=== PATIENT | female | born 1995 | race Caucasian/White ===

== ENCOUNTER 2017-09-04 23:56 | Emergency (ER) | payer BC ==
[2017-09-05 00:34] LABS: CHLORIDE,CL 104 mmol/L (98-107); SODIUM,NA 138 mmol/L (136-145)
[2017-09-05] MEDS ORDERED: Ondansetron 4 MG/2 ML SDV IVPUSH ONE ×2 (00:36→07:45)
[2017-09-05] MEDS ORDERED: Ketorolac 30 MG/ML SDV IVPUSH ONE (00:36)
--- NOTE | 2017-09-05 00:36 | EDM.PDOC ---
ED HPI GENERAL MEDICAL PROBLEM - General Chief Complaint: General Stated Complaint: abd pain, emesis, headache Time Seen by Provider: 09/05/17 00:24 Source of Information: Reports: Patient History Limitations: Reports: No Limitations - History of Present Illness INITIAL COMMENTS - FREE TEXT/NARRATIVE: Patient complains of not feeling well today. Initially she had headache that improved after taking ibuprofen. 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 After she was off work and returned home, she developed nausea, emesis, abdominal pain/cramping. She also noted worsening headache again. Patient has had chills/felt sweaty. No diarrhea or urinary changes. No neuro complaints. Does have remote history of migraines but has not had one for "years". Previous migraine headaches did not present like this however. Patient now has dry heaves. Unable to keep anything down. No other complaints. 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 Denies: Fever HEENT: Reports: No Symptoms Respiratory: Reports: No Symptoms Cardiovascular: Reports: No Symptoms GI/Abdominal: Reports: Abdominal Pain, Nausea, Vomiting. Denies: Constipation, Diarrhea, Distension, Hematemesis, Hematochezia : Reports: No Symptoms Musculoskeletal: Reports: No Symptoms Skin: Reports: No Symptoms Neurological: Reports: Headache. Denies: Confusion, Dizziness, Numbness, Paresthesia, Syncope, Difficulty Walking, Change in Speech, Gait Disturbance Psychiatric: Reports: No Symptoms ED EXAM, GENERAL - Physical Exam Exam: See Below Exam Limited By: No Limitations General Appearance: Alert, WD/WN, Other (appears tired, uncomfortable) Eye Exam: Left Eye: EOMI, PERRL Ears: Normal External Exam Nose: No: Nasal Deformity, Nasal Swelling, Nasal Drainage Throat/Mouth: Normal Inspection, Normal Lips, Normal Teeth, Normal Gums, Normal Oropharynx, Normal Voice, No Airway Compromise Head: Atraumatic, Normocephalic Neck: Supple, Non-Tender, Full Range of Motion, Other (small palpable nodes noted left side of neck, chronic per patient) Respiratory/Chest: No Respiratory Distress, Lungs Clear, Normal Breath Sounds, No Accessory Muscle Use Cardiovascular: Normal Peripheral Pulses, No Edema, No Murmur, Tachycardia Peripheral Pulses: 2+: Radial (L), Radial (R) GI/Abdominal: Soft, Tender (diffusely, all 4 quadrants. More pronounced in epigastric area. ), Abnormal Bowel Sounds (diminished all 4 quadrants). No: Guarding, Rigid, Rebound, Hepatomegaly (Female) Exam: Deferred Rectal (Female) Exam: Deferred Back Exam: Normal Inspection. No: CVA Tenderness (L), CVA Tenderness (R) Extremities: Normal Inspection, Normal Range of Motion, Non-Tender, No Pedal Edema, Normal Capillary Refill Neurological: Alert, Oriented, CN II-XII Intact, Normal Cognition, Normal Gait, No Motor/Sensory Deficits Psychiatric: Normal Affect, Normal Mood Skin Exam: Warm, Dry, Intact, Normal Color, Other (slightly warm to touch) Course - Vital Signs Last Recorded V/S: Last Vital Signs Temp 37.0 C 09/05/17 08:45 Pulse 80 09/05/17 08:45 Resp 16 09/05/17 08:45 BP 124/74 09/05/17 08:45 Pulse Ox 100 09/05/17 08:45 - Orders/Labs/Meds Orders: Active Orders 24 hr Category Date Time Status Abdomen w Cont [CT] Stat Exams 09/05/17 07:54 Taken UA W/MICROSCOPIC [URIN] Stat Lab 09/05/17 00:09 Ordered Lactated Ringers [Ringers, Lactated] 1,000 ml Med 09/05/17 04:45 Active IV ASDIRECTED Lactated Ringers [Ringers, Lactated] 1,000 ml Med 09/05/17 05:00 Active IV ASDIRECTED Sodium Chloride 0.9% [Saline Flush] Med 09/05/17 00:24 Active 10 ml FLUSH ASDIRECTED PRN Saline Lock Insert [OM.PC] Stat Oth 09/05/17 00:24 Ordered Medication Orders Lactated Ringer's (Ringers, Lactated) 1,000 mls @ 500 mls/hr IV ASDIRECTED MADDISON Last Admin: 09/05/17 04:52 Dose: 500 mls/hr Lactated Ringer's (Ringers, Lactated) 1,000 mls @ 250 mls/hr IV ASDIRECTED MADDISON Last Admin: 09/05/17 06:54 Dose: 250 mls/hr Sodium Chloride (Saline Flush) 10 ml FLUSH ASDIRECTED PRN PRN Reason: Keep Vein Open Last Admin: 09/05/17 07:51 Dose: 10 ml Admin: 09/05/17 00:49 Dose: 10 ml Labs: Laboratory Tests 09/05/17 09/05/17 09/05/17 Range/Units 00:09 00:10 00:10 WBC 10.9 H (4.0-10.2) K/uL RBC 4.54 (3.77-5.09) M/uL Hgb 14.0 (11.7-15.5) g/dL Hct 40.4 (34.0-46.0) % MCV 89.0 (84.0-98.0) fL MCH 30.8 (28.2-33.3) pg MCHC 34.7 (31.7-36.0) g/dL RDW 12.3 (11.2-14.1) % Plt Count 219 (150-350) K/uL Neut % (Auto) 88.2 H (45.0-80.0) % Lymph % (Auto) 5.6 L (10.0-50.0) % [place] % (Auto) 5.8 (2.0-14.0) % Eos % (Auto) 0.3 (0.0-5.0) % Baso % (Auto) 0.1 (0.0-2.0) % Neut # (Auto) 9.57 H (1.40-7.00) K/uL Lymph # (Auto) 0.61 (0.50-3.50) K/uL [place] # (Auto) 0.63 (0.00-1.00) K/uL Eos # (Auto) 0.03 (0.00-0.50) K/uL Baso # (Auto) 0.01 (0.00-0.20) K/uL Sodium 138 (136-145) mmol/L Potassium 3.6 (3.5-5.1) mmol/L Chloride 104 (98-107) mmol/L Carbon Dioxide 22.0 (21.0-32.0) mmol/L BUN 21 H (7-18) mg/dL Creatinine 0.86 (0.51-1.17) mg/dL Est Cr Clr Drug Dosing 87.10 mL/min Estimated GFR (MDRD) > 60 mL/min Glucose 112 H (74-106) mg/dL Calcium 8.4 L (8.5-10.1) mg/dL HCG, Qual (NEGATIVE) Specimen Type Urincc Urine Color Dark yellow Urine Appearance Clear Urine pH 5.5 (5.0-9.0) Ur Specific [place] 1.020 (1.005-1.030) Urine Protein Negative (NEGATIVE) mg/dL Urine Glucose (UA) Negative (NEGATIVE) mg/dL Urine Ketones 40 H (NEGATIVE) mg/dL Urine Occult Blood Negative (NEGATIVE) Urine Nitrite Negative (NEGATIVE) Urine Bilirubin Negative (NEGATIVE) Urine Urobilinogen 0.2 (0.2-1.0) E.U./dL Ur Leukocyte Esterase Negative (NEGATIVE) Urine RBC 0-5 /HPF Urine WBC 0-5 /HPF Ur Epithelial Cells Few /LPF Urine Bacteria Moderate H (NONE TO FEW) /HPF Urine Mucus Few H (NEGATIVE) /LPF 09/05/17 Range/Units 00:10 WBC (4.0-10.2) K/uL RBC (3.77-5.09) M/uL Hgb (11.7-15.5) g/dL Hct (34.0-46.0) % MCV (84.0-98.0) fL MCH (28.2-33.3) pg MCHC (31.7-36.0) g/dL RDW (11.2-14.1) % Plt Count (150-350) K/uL Neut % (Auto) (45.0-80.0) % Lymph % (Auto) (10.0-50.0) % [place] % (Auto) (2.0-14.0) % Eos % (Auto) (0.0-5.0) % Baso % (Auto) (0.0-2.0) % Neut # (Auto) (1.40-7.00) K/uL Lymph # (Auto) (0.50-3.50) K/uL [place] # (Auto) (0.00-1.00) K/uL Eos # (Auto) (0.00-0.50) K/uL Baso # (Auto) (0.00-0.20) K/uL Sodium (136-145) mmol/L Potassium (3.5-5.1) mmol/L Chloride (98-107) mmol/L Carbon Dioxide (21.0-32.0) mmol/L BUN (7-18) mg/dL Creatinine (0.51-1.17) mg/dL Est Cr Clr Drug Dosing mL/min Estimated GFR (MDRD) mL/min Glucose (74-106) mg/dL Calcium (8.5-10.1) mg/dL HCG, Qual Negative (NEGATIVE) Specimen Type Urine Color Urine Appearance Urine pH (5.0-9.0) Ur Specific [place] (1.005-1.030) Urine Protein (NEGATIVE) mg/dL Urine Glucose (UA) (NEGATIVE) mg/dL Urine Ketones (NEGATIVE) mg/dL Urine Occult Blood (NEGATIVE) Urine Nitrite (NEGATIVE) Urine Bilirubin (NEGATIVE) Urine Urobilinogen (0.2-1.0) E.U./dL Ur Leukocyte Esterase (NEGATIVE) Urine RBC /HPF Urine WBC /HPF Ur Epithelial Cells /LPF Urine Bacteria (NONE TO FEW) /HPF Urine Mucus (NEGATIVE) /LPF Meds: Medications Generic Name Dose Route Start Last Admin Trade Name Freq PRN Reason Stop Dose Admin Lactated Ringer's 1,000 mls @ 500 mls/hr 09/05/17 04:45 09/05/17 04:52 Ringers, Lactated IV 500 mls/hr ASDIRECTED MADDISON Administration Lactated Ringer's 1,000 mls @ 250 mls/hr 09/05/17 05:00 09/05/17 06:54 Ringers, Lactated IV 250 mls/hr ASDIRECTED MADDISON Administration Sodium Chloride 10 ml 09/05/17 00:24 09/05/17 07:51 Saline Flush FLUSH 10 ml ASDIRECTED PRN Administration Keep Vein Open Discontinued Medications Generic Name Dose Route Start Last Admin Trade Name Rebecca PRN Reason Stop Dose Admin Diazepam 5 mg 09/05/17 04:46 09/05/17 04:53 Valium. PO 09/05/17 04:47 5 mg ONETIME ONE Administration Dicyclomine HCl 20 mg 09/05/17 07:44 09/05/17 11:32 Bentyl PO 09/05/17 07:45 20 mg NOW STA Administration Fentanyl 100 mcg 09/05/17 00:40 09/05/17 01:07 Sublimaze IVPUSH 09/05/17 00:41 100 mcg ONETIME ONE Administration Sodium Chloride 1,000 mls @ 999 mls/hr 09/05/17 00:37 09/05/17 00:50 Normal Saline IV 09/05/17 01:37 999 mls/hr .BOLUS ONE Administration Sodium Chloride 1,000 mls @ 500 mls/hr 09/05/17 02:00 09/05/17 01:57 Normal Saline IV 09/05/17 03:59 500 mls/hr .BOLUS ONE Administration Iopamidol 100 ml 09/05/17 08:30 09/05/17 09:45 Isovue-300 (61%) IVPUSH 09/05/17 08:31 100 ml ONETIME ONE Administration Ketorolac Tromethamine 30 mg 09/05/17 00:36 09/05/17 00:40 Toradol IVPUSH 09/05/17 00:37 30 mg ONETIME ONE Administration Ondansetron HCl 4 mg 09/05/17 00:36 09/05/17 00:40 Zofran IVPUSH 09/05/17 00:37 4 mg ONETIME ONE Administration Ondansetron HCl 4 mg 09/05/17 07:45 09/05/17 07:50 Zofran IVPUSH 09/05/17 07:46 4 mg ONETIME ONE Administration Promethazine HCl 25 mg 09/05/17 04:46 09/05/17 04:55 Phenergan IM 09/05/17 04:47 25 mg ONETIME ONE Administration - Radiology Interpretation CT Results Date: 09/05/17 CT Results Time: 09:51 - Re-Assessments/Exams Free Text/Narrative Re-Assessment/Exam: 09/05/17 00:49 WBC just above normal limits. Chemistry did show mild decrease calcium. UA revealed elevated ketones, however no changes suggestive of UTI. Given history as well as exam/presentation, suspect that acute viral gastroenteritis is most likely etiology. Cannot rule out other causes however. Plan at this time is to provide IV fluid hydration over the next 3 hours as well as pain and nausea medication. Depending on clinical course may need to consider further evaluation such as imaging studies. Patient is in agreement with plan. Free Text/Narrative Re-Assessment/Exam: 09/05/17 04:40 Patient did have some improvement with initial medication but re-developing worsening abdominal cramping and nausea. Refused observation admission. Refused additional pain medication. Given Phenergan as well as Valium. Additional fluids ordered. Free Text/Narrative Re-Assessment/Exam: 09/05/17 07:40 Continues to have crampy pain/nausea. Pain continues to involve entire abdomen but is now more intense LLQ. Some additional urine output but urine is still darker in color. Still refusing additional pain medication, says she does not like how MS/Dilaudid/Fentanyl make her feel. Still strongly suspect viral gastroenteritis vs food poisoning as likely possible etiologies for observed illness. Patient does not recall having any questionable meals. Did have a salad prior to getting ill. and coworkers do not have similar illness. CT of abdomen ordered due to persistence of symptoms. 09/05/17 11:26 CT of abdomen normal per Radiology. Results discussed with patient. She still has diffuse pain with palpation of abdomen. No guarding/rebound noted. No CVA pain. Vital signs stable. Bowel sounds are diminished. Exam unchanged except for discomfort more pronounced LLQ and improved in epigastric/RUQ/RLQ areas. Patient would like to go home and rest in her own bed. Does not wish to stay any longer. Plan is to keep IV site in place and cover with protective dressing if patient needs to return for re-evaluation or additional fluids. Clear fluids only recommended for today. She can advance diet as tolerated starting tomorrow. Extensive precautions reviewed prior to discharge from ER. She is to follow up for re-evaluation if she has worsening problems or if there is no additional improvement in symptoms by tomorrow morning. She is in agreement with this plan. Departure - Departure Time of Disposition: 11:50 Disposition: Home, Self-Care 01 Condition: Good Clinical Impression: Gastroenteritis, Dehydration - Discharge Information Instructions: Dehydration, Adult, [id number] Referrals: PCP,None [Primary Care Provider] - Forms: ED Department Discharge Additional Instructions: Clear fluids recommended for today. Advance diet as tolerated afterwards. Avoid eating any dairy for the next 2-3 days. If symptoms return/worsen or do not show any further improvement by tomorrow follow up for recheck and further evaluation. - My Orders Last 24 Hours: My Active Orders 09/05/17 00:09 UA W/MICROSCOPIC [URIN] Stat 09/05/17 00:24 Sodium Chloride 0.9% [Saline Flush] 10 ml FLUSH ASDIRECTED PRN Saline Lock Insert [OM.PC] Stat 09/05/17 04:45 Lactated Ringers [Ringers, Lactated] 1,000 ml IV ASDIRECTED 09/05/17 05:00 Lactated Ringers [Ringers, Lactated] 1,000 ml IV ASDIRECTED 09/05/17 07:54 Abdomen w Cont [CT] Stat - Assessment/Plan Last 24 Hours: My Active Orders 09/05/17 00:09 UA W/MICROSCOPIC [URIN] Stat 09/05/17 00:24 Sodium Chloride 0.9% [Saline Flush] 10 ml FLUSH ASDIRECTED PRN Saline Lock Insert [OM.PC] Stat 09/05/17 04:45 Lactated Ringers [Ringers, Lactated] 1,000 ml IV ASDIRECTED 09/05/17 05:00 Lactated Ringers [Ringers, Lactated] 1,000 ml IV ASDIRECTED 09/05/17 07:54 Abdomen w Cont [CT] Stat
[2017-09-05] MEDS ORDERED: Sodium Chloride 0.9% 1,000 ML IV ONE ×2 (00:37→02:00)
[2017-09-05] MEDS ORDERED: fentaNYL 100 MCG/2 ML SDV IVPUSH ONE (00:40)
[2017-09-05] MEDS: Sodium Chloride 0.9% 10 ML Syringe FLUSH PRN ×2 (00:49→07:51)
[2017-09-05] MEDS ORDERED: Lactated Ringers 1,000 ML IV SCH ×2 (04:45→05:00)
[2017-09-05] MEDS ORDERED: Promethazine 25 MG/ML SDV IM ONE (04:46)
[2017-09-05] MEDS ORDERED: Diazepam 5 MG Tab PO ONE (04:46)
[2017-09-05] MEDS ORDERED: Dicyclomine 20 MG Tab PO STA (07:44)
[2017-09-05] MEDS ORDERED: Iopamidol 612 MG/ML 100 ML Bottle IVPUSH ONE (08:30)
== END 2017-09-05 11:45 | disposition home or self-care (01) ==
LOC: LL.ED 23:56
DX: K52.9 Noninfective gastroenteritis and colitis, unspecified (principal); E86.0 Dehydration; Z79.899 Other long term (current) drug therapy
CPT/HCPCS: 36415; 74160; 80048; 81001; 84703; 85025; 96361; 96374; 96375; 96376; 99284; A9270-GY; J1885; J2405; J2550; J3010; J7030; J7050; J7120; Q9967